=== PATIENT | female | born 1980 | race African-American/Black ===

== ENCOUNTER 2019-04-23 12:26 | Emergency (ER) | payer OTHER, MEDICAID ==
[~2019-04-23] VITALS: Ht 165.1 cm; Wt 81.7 kg
[~2019-04-23 12:26] MED LIST: BACTRIM DS TAB1 EACH PO; CIPROFLOXACIN500 M1 PO; CUTIVATE120 ML TP; DIFLUCAN150 MG PO; FLAGYL500 MG PO; FLEXERIL PO; HYDROXYZINE HCL25 M1 PO; IBU600 MG PO; IBUPROFEN 800800 M1 PO; KENALOG60 GM TP; MACROBID 100 M100 M1 PO; NAPROSYN500 MG PO; NOHOMEMEDICATIONS; NORCO 5-325 TA1 EACH PO; ROBAFEN AC PO; TRIAMCINOLONE 080 G3 TOP; TRIAMCINOLONE 080 G3 TP; TRIAMCINOLONE A15 G2 TP; TRIAMCINOLONE A80 G2 TOP; TRIAMCINOLONE A80 GM TOP; ULTRAM 50MG TAB50 MG PO; VALIUM5 MG PO; VISTARIL 25 MG25 M1 PO; ZPAK PO
[2019-04-23 13:21] LABS: URINE BILIRUBIN NEGATIVE (Negative); URINE BLOOD 2+ (Negative); URINE CLARITY CLEAR; URINE COLOR YELLOW; URINE GLUCOSE-RANDOM NEGATIVE (Negative); URINE KETONES NEGATIVE (Negative); URINE NITRITE-REFLEX NEGATIVE (Negative); URINE PROTEIN NEGATIVE (Negative); URINE SPECIFIC GRAVITY 1.025 (1.005-1.030); URINE UROBILINOGEN 0.2 E.U./dl (0.2-1.0)
[2019-04-23 13:27] LABS: URINE LEUKOCYTES-REFLEX 3+ (Negative)
[2019-04-23 13:34] LABS: CASTS None Seen /LPF (None Seen); CRYSTALS None Seen /LPF (None Seen); MUCUS 4-6 Moderate strn/LPF (None Seen); SQUAMOUS >10 Many /LPF (0-3); URINE RBC 3-10 Few /HPF (0-2)
[2019-04-23] MEDS ORDERED: CIPRO500 MG PO (13:57)
[2019-04-23] MEDS ORDERED: DIFLUCAN150 M1 PO (13:57)
[2019-04-23 14:20] VITALS: BP 115/73
== END 2019-04-23 14:22 | disposition home or self-care (01) ==
LOC: M.ERS 12:26
PROVIDERS: Nurse Practitioner Family
DX: A59.01 Trichomonal vulvovaginitis (principal); N39.0 Urinary tract infection, site not specified; Z87.891 Personal history of nicotine dependence

== ENCOUNTER 2019-07-06 22:45 | Emergency (ER) | payer OTHER, MEDICAID ==
[~2019-07-06] VITALS: Ht 165.1 cm; Wt 81.7 kg
[~2019-07-06 22:45] MED LIST changes: +CIPRO500 MG PO; +DIFLUCAN150 M1 PO
[2019-07-06 22:53] VITALS: BP 147/75
[2019-07-06 23:04] LABS: URINE BILIRUBIN NEGATIVE (Negative); URINE BLOOD TRACE (Negative); URINE CLARITY CLEAR; URINE COLOR YELLOW; URINE GLUCOSE-RANDOM NEGATIVE (Negative); URINE KETONES NEGATIVE (Negative); URINE LEUKOCYTES-REFLEX NEGATIVE (Negative); URINE NITRITE-REFLEX NEGATIVE (Negative); URINE PROTEIN NEGATIVE (Negative); URINE UROBILINOGEN 0.2 E.U./dl (0.2-1.0)
[2019-07-06] MEDS ORDERED: FLAGYL500 M1 PO (23:13)
[2019-07-06] MEDS ORDERED: MEDROLDOSEPACK PO (23:16)
== END 2019-07-06 23:31 | disposition home or self-care (01) ==
LOC: M.ERS 22:45
PROVIDERS: Nurse Practitioner Family
DX: N76.0 Acute vaginitis (principal); B96.89 Other specified bacterial agents as the cause of diseases classified elsewhere; R30.0 Dysuria; Z87.891 Personal history of nicotine dependence; Z98.51 Tubal ligation status